=== PATIENT | male | born 1965 | race Hispanic/Latino ===

== ENCOUNTER → 2019-04-06 | Outpatient (CLI) | payer OTHER ==
--- NOTE | 2019-04-06 12:43 | Diagnostic Imaging Report ---
Right upper quadrant abdominal ultrasound. History: Abnormal liver function studies.. Comparison: <None available>. Discussion: Transverse and longitudinal images of the right upper quadrant of the abdomen were obtained demonstrating a liver of normal size but increased echogenicity measuring 13.9 cm in length. There is no evidence of a focal hepatic mass. Doppler evaluation of the portal vein shows patency with hepatopetal flow and is within normal limits measuring 1.1 cm in diameter. The biliary tree is within normal limits with the common bile duct measuring 0.3 cm in diameter. The gallbladder is normal without evidence of wall thickening or pericholecystic fluid. The sonographic Gomez's sign was negative. The right kidney is normal in size and echogenicity without evidence of hydronephrosis, stones, or mass and measures 13.9 cm in length. The pancreatic <body and tail> are visualized and are normal in appearance. The abdominal aorta is within normal limits. The IVC is patent. There is no evidence of free fluid. IMPRESSION: Increased echogenicity of the liver. Signed by: Dr. Mono Pedroza DO on 04/06/2019 12:39 PM
== END ==
LOC: US 09:37
PROVIDERS: ATTEND Internal Medicine Interventional Cardiology
DX: R94.5 Abnormal results of liver function studies (principal)
CPT/HCPCS: 76705

== ENCOUNTER → 2019-04-27 | Day surgery (SDC) | payer OTHER ==
[2019-04-22 14:44] LABS: BASOPHILS % 0.4 % (0.0-1.0); EOSINOPHILS # (AUTO) 0.3 (0.0-0.4); EOSINOPHILS % 3.3 % (0.0-6.0); HEMATOCRIT 43.1 % (38.2-49.6); HEMOGLOBIN 14.1 g/dL (14.0-18.0); LYMPHOCYTES # (AUTO) 2.8 (1.0-3.2); MEAN CORPUSCULAR HEMOGLOBIN 29.4 pg (28-32); MEAN CORPUSCULAR HGB CONC 32.7 g/dL (31-35); MEAN CORPUSCULAR VOLUME 89.8 fL (81-99); MONOCYTES # (AUTO) 0.6 (0.2-0.8); MONOCYTES % 7.5 % (4.4-11.3); NEUTROPHILS # (AUTO) 4.3 (2.1-6.9); NEUTROPHILS % 53.3 % (38.7-80.0); PLATELET COUNT 225 x10e3/uL (140-360); RED CELL DISTRIBUTION WIDTH 12.3 % (11.7-14.4)
[2019-04-22 15:01] LABS: ALANINE AMINOTRANSFERASE 35 IU/L (0-55); ALBUMIN/GLOBULIN RATIO 1.2 (0.8-2.0); ALKALINE PHOSPHATASE 51 IU/L (40-150); ANION GAP 14.1 mmol/L (8-16); BLOOD UREA NITROGEN 19 mg/dL (7-26); BUN/CREATININE RATIO 17 (6-25); CALCIUM 9.1 mg/dL (8.4-10.2); CARBON DIOXIDE 24 mmol/L (22-29); CHLORIDE 103 mmol/L (98-107); EST GLOMERULAR FILTRATION RATE > 60 ML/MIN (60-); GLUCOSE 102 mg/dL (74-118); POTASSIUM 4.1 mmol/L (3.5-5.1); SODIUM 137 mmol/L (136-145)
[~2019-04-27] VITALS: Ht 172.7 cm; Wt 97.5 kg
[~2019-04-27] MED LIST: AMLODIPINE BESYL5 MG PO; DIGOXIN250 MCG PO; FENTANYL CITRATE/PF 100MCG/2 ML INJ ONE; HEPARIN SOD/SOD CHLORIDE 2,000 ML ONE; HYDROCHLOROTHIA25 MG PO; IOPAMIDOL 370 MG/ML 200 ML INFUS..BTL INJ ONE; LIDOCAINE HCL 2% LOCAL 20 ML VIAL ONE; LISINOPRIL-HCT1 EAC2 PO; METFORMIN HCL500 MG PO; METOPROLOL TART50 MG PO; MIDAZOLAM HCL 2 MG/2 ML VIAL ONE; SODIUM CHLORIDE 0.9% 1000ML 1,000 ML ONE; SPIRONOLACTONE25 MG PO; TRICOR145 MG PO; VERAPAMIL HCL 2.5 MG/ML 2 ML VIAL ONE; XARELTO20 MG PO
--- OUTSIDE RECORDS SUMMARY | 2019-04-27 11:30 | XMS REPORT ---
Author Author [facility] Address Unknown Phone Unavailable Care Team Providers Care Stamp Presser Name Role Phone DARRIAN METZ Unavailable Unavailable Problems This patient has no known problems. Allergies, Adverse Reactions, Alerts This patient has no known allergies or adverse reactions. Medications This patient has no known medications. Results Test Description Test Time Test Comments Text Results Atomic Results Result Comments LIVER 2019-04-06 12:36:00 [place] [id number] Patient Name: LUDIN CORRIGAN MR #: [id number] : 1965 Age/Sex: 53/M Req #: [id number] Adm Physician: Ordered by: DARRIAN METZ MD Report #: [id number] Location: Room/Bed: Procedure: [id number] US/US LIVER Exam Date: 04/06/19 Exam Time: 1030 REPORT STATUS: Signed Right upper quadrant abdominal ultrasound. History: Abnormal liver function studies.. Comparison: <None available>. Discussion: Transverse and longitudinal images of the right upper quadrant of the abdomen were obtained demonstrating a liver of normal size but increased echogenicity measuring 13.9 cm in length. There is no evidence of a focal hepatic mass. Doppler evaluation of the portal vein shows patency with hepatopetal flow and is within normal limits measuring 1.1 cm in diameter. The biliary tree is within normal limits with the common bile duct measuring 0.3 cm in diameter. The gallbladder is normal without evidence of wall thickening or pericholecystic fluid. The sonographic Gomez's sign was negative. The right kidney is normal in size and echogenicity without evidence of hydronephrosis, stones, or mass and measures 13.9 cm in length. The pancreatic <body and tail> are visualized and are normal in appearance. The abdominal aorta is within normal limits. The IVC is patent. There is no evidence of free fluid. IMPRESSION: Increased echogenicity of the liver. Signed by: Dr. Saul Pedroza DO on 04/06/2019 12:39 PM Dictated By: SAUL PEDROZA DO 1239 Transcribed By: ALVINO on 04/06/19 1239 COPY TO: DARRIAN METZ MD
[2019-04-27 12:10] VITALS: BP 143/89
[2019-04-27 13:00] VITALS: BP 125/76
--- NOTE | 2019-04-27 13:00 | NUR ---
bedside report received from Carmen Clay RN. Alert oriented and appropriate, PERRLA, respirations even and unlabored to room air. Pulses x4 extremities equal and strong. TR band to right wrist, no s/s of hematoma. Cap fill brisk < 3 sec. + neurovascular function Skin warm and dry integrity appears intact. IV 20g to left forearm presents healthy w/o s/s of infiltration or complaint. Abdomen soft and supple. Personal affects with patient. Family escorted to bedside. Pt and family verbalizes understanding of POC. bedside monitoring in use . Currently w/o complaint of pain or need. Verbalizes understanding of POC post procedure. No gross issues of dysrhythmia , pressure, pain, or pallor. bed low and locked, call light at bedside. -cgf
[2019-04-27 14:00] VITALS: BP 108/72
[2019-04-27 14:15] VITALS: BP 110/76
[2019-04-27 14:30] VITALS: BP 111/81
--- NOTE | 2019-04-27 15:52 | NUR ---
Patient discharged home with daughter. Patient discharge instructions given and diagram copy sent home with patient. Patient IV removed. Patient dressed and assisted to wheelchair and wheeled out and placed in care of daughter. No other issues noted.
--- NOTE | 2019-04-27 19:26 | Operative Report ---
DATE OF PROCEDURE: 04/27/2019 SURGEON: Osmin Samayoa MD INDICATIONS: Coronary artery disease, abnormal stress test, angina. PROCEDURES PERFORMED: 1. Left heart catheterization, selective coronary angiography, left ventriculography. 2. Deployment of right wrist TR band. COMPLICATIONS: None. RECOMMENDATIONS: Medical therapy. DESCRIPTION OF PROCEDURE: Access obtained in the right radial artery. Using ultrasound guidance, a 5-[place] sheath was placed. Diagnostic coronary angiogram revealed 50% mid artery stenosis, remaining vessels had diffuse 30% to 50% stenosis. LV ejection fraction 60%. LV end-diastolic pressure of 14. No gradient across aortic valve on pullback. No intervention is deemed necessary. Right wrist TR band applied. The patient discharged home same day. Osmin Smaayoa MD KSB/MODL /[id number]
== END | disposition home or self-care (01) ==
LOC: CATH LAB 10:24
PROVIDERS: ATTEND Internal Medicine Interventional Cardiology
DX: I25.119 Atherosclerotic heart disease of native coronary artery with unspecified angina pectoris (principal); R94.39 Abnormal result of other cardiovascular function study; I48.91 Unspecified atrial fibrillation; Z01.812 Encounter for preprocedural laboratory examination; Z79.02 Long term (current) use of antithrombotics/antiplatelets; Z79.84 Long term (current) use of oral hypoglycemic drugs
CPT/HCPCS: 36415; 76937; 80053; 85025; 93458; C1769; C1887; J2001; J2250; J3010; J7030; Q9967